=== PATIENT | female | born 1945 | race African-American/Black ===

== ENCOUNTER 2023-01-16 12:07 | Emergency (ER) | payer OTHER ==
[2023-01-16 12:30] VITALS: BP 118/75; PULSE 86; RESP 20; TEMP 97.8; BMI 37.0
[2023-01-16] MEDS ORDERED: SODIUM CHLORIDE 0.9% 500 ML INFUS.BAG IV ONE (12:44)
[2023-01-16] MEDS ORDERED: ONDANSETRON 4 MG/2 ML VIAL IVPUSH ONE (12:44)
[2023-01-16] MEDS ORDERED: ONDANSETRON 4 MG/2 ML VIAL ONE (13:00)
[2023-01-16 14:42] LABS: BASO % 0.9 % (0-2.0); EOS % 1.7 % (0-4.5); HEMATOCRIT 41.2 % (32.4-45.2); HEMOGLOBIN 13.4 GM/dL (10.7-15.3); LYMPH % 29.4 % (8-40); MCH 30.1 pg (25.7-33.7); MCHC 32.4 g/dl (32.0-36.0); MEAN CELL VOLUME 92.8 fl (80-96); MEAN PLT VOLUME 9.9 fl (7.5-11.1); MONO % 10.7 % (3.8-10.2); NEUT % 57.3 % (42.8-82.8); PLATELET COUNT 188 10^3/uL (134-434); RBC 4.44 M/mm3 (3.60-5.2); RDW 14.8 % (11.6-15.6)
[2023-01-16 15:04] LABS: POTASSIUM 4.3 mmol/L (3.5-5.1)
[2023-01-16 15:07] LABS: ALBUMIN 3.6 g/dl (3.4-5.0); BLOOD UREA NITROGEN 16.4 mg/dL (7-18); CALCIUM 9.5 mg/dL (8.5-10.1)
[2023-01-16 15:08] LABS: MAGNESIUM 2.1 mg/dL (1.8-2.4)
[2023-01-16 15:10] LABS: CREATININE 1.2 mg/dL (0.55-1.3)
[2023-01-16 15:12] LABS: BILIRUBIN,TOTAL 0.8 mg/dL (0.2-1)
== END 2023-01-16 16:23 | disposition home or self-care (01) ==
LOC: JER 12:07
PROC: 3E033GC Introduction of Other Therapeutic Substance into Peripheral Vein, Percutaneous Approach (ICD-10-PCS; principal; 2023-01-16)
DX: R55 Syncope and collapse (principal); R11.2 Nausea with vomiting, unspecified; R42 Dizziness and giddiness; R10.13 Epigastric pain
CPT/HCPCS: 36415; 71046-TC-FY; 80053; 82962; 83690; 83735; 84484; 85025; 93005; 93010; 99285-25